=== PATIENT | female | born 1935 | race Caucasian/White ===

== ENCOUNTER → 2017-12-26 | Day surgery (SDC) | payer OTHER, MEDICARE ==
[~2017-12-26] VITALS: Ht 170.2 cm; Wt 68.0 kg
--- NOTE | 2017-12-26 11:05 | Operative Report ---
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 Informed consent was obtained. The patient was brought to the operating room where they were placed under sedation and a retrobulbar block was achieved to the right eye without complication. The right eye was prepped and draped in a normal sterile fashion. Speculum was placed with good exposure. Paracenteses were made with a stab incision blade. The anterior chamber was filled with viscoelastic. A 2.4 mm clear corneal incision was made using keratome blade. An approximately 8.25 diameter central area of Descemet's membrane was stripped and removed. An inferior paracentesis was made using reverse Sinskey hook and cyclodialysis spatula and enlarged using intraocular scissors. A temporary suture was placed in the main incision using 10-0 nylon. Attention was turned to the preloaded DMEK graft. The preloaded cartridge was removed from the sterile container. The caps were removed under balanced salt solution and the cartridge attached to a 3 mL syringe using 14 [place] tubing. Attention was turned back to the patient and viscoelastic was evacuated from the anterior chamber using coaxial irrigation and aspiration. Intracameral Miochol was instilled. The temporary suture was loosened and the graft was injected into the anterior chamber without incident. The suture was tightened. With a shallow chamber and a series of taps to the cornea the graft was unfolded and found to be in proper orientation based on the "S" stamp. The graft was locked in position using a complete air fill of the anterior chamber using SF6 gas. The eye was filled to superphysiologic pressure for approximately 2 minutes with a complete air fill. The eye was brought to physiologic pressure with a complete air fill for an additional 8 minutes. Some conjunctival injections of cefuroxime and dexamethasone were placed. Dilating drops were placed on the eye. Speculum was removed and the patient was brought to the recovery area where they lay for an additional 1 hour without incident. Instructions were given to the patient to follow-up the next day for routine postoperative care.
== END ==
LOC: STS 02:38
DX: H18.51 Endothelial corneal dystrophy (principal); I10 Essential (primary) hypertension; I25.10 Atherosclerotic heart disease of native coronary artery without angina pectoris; Z95.5 Presence of coronary angioplasty implant and graft; M19.90 Unspecified osteoarthritis, unspecified site; Z79.82 Long term (current) use of aspirin
CPT/HCPCS: J1100; J2001; J2250; V2785